=== PATIENT | female | born 2000 | race Native Hawaiian/Other Pacific Islander ===

== ENCOUNTER 2020-01-16 21:53 | Observation (INO) | payer MEDICAID, OTHER ==
[2020-01-16] MEDS ORDERED: DEXAMETHASONE INJ 10 MG/ML VIAL IV ONE (22:30)
[2020-01-16] MEDS ORDERED: IPRATROPIUM/ALBUTEROL 3 ML VIAL NEB ONE (22:31)
[2020-01-16] MEDS ORDERED: ALBUTEROL SULFATE 2.5 MG/3 ML VIAL NEB ONE (22:31)
--- NOTE | 2020-01-16 22:47 | RAD ---
EXAM DESCRIPTION: Chest,1 View CLINICAL HISTORY: 19 years Female, SOB COMPARISON: None TECHNIQUE: Single AP chest radiograph. FINDINGS: Clear lungs. No pneumothorax or pleural effusion. Normal cardiomediastinal contour. Normal osseous structures. IMPRESSION: 1. No acute cardiopulmonary process. Electronically signed by: Yasmani Sosa MD 01/16/2020 10:45 PM CDT
--- NOTE | 2020-01-16 22:50 | ED.PDOC ---
History of Present Illness - General Chief Complaint: Respiratory Problem Stated Complaint: SOB Time Seen by Provider: 01/16/20 22:45 Source: patient, RN notes reviewed, Vital Signs reviewed, family - fiance Exam Limitations: no limitations - History of Present Illness Initial Comments: Patient is a 19-year-old female who presents with complaints of shortness of breath and cough. Patient is feeling sick for the last couple of days. Seen at the clinic this morning and was given a breathing treatment and some steroids and told to come to the ED if not improving. Patient became more short of breath this evening and came to the ED. On arrival here patient is 85% on room air. Patient is also dyspneic. Patient complains of cough which is nonproductive. Patient denies fevers or chills. Timing/Duration: 24 hours Severity: moderate Activities at Onset: none Possible Cause: no prior episodes Improving Factors: nothing Worsening Factors: movement Associated Symptoms: chest pain, cough Respiratory Risk Factors: no cause identified Allergies/Adverse Reactions: Allergies NO KNOWN ALLERGY Allergy (Verified 01/16/20 22:17) Home Medications: Ambulatory Orders Albuterol Inhaler [Ventolin Hfa Inhaler] 108 mcg IN QID PRN 01/16/20 Amitriptyline HCl [Amitriptyline Hydrochlori] 50 mg PO DAILY 01/16/20 Fluticasone/Salmeterol 100/50 [Advair Diskus] 1 puff INH BID 01/16/20 Review of Systems - Review of Systems Constitutional: States: see HPI, malaise, weakness. Denies: chills, fever EENTM: States: no symptoms reported. Denies: eye pain, blurred vision, double vision Respiratory: States: see HPI, cough, short of breath Cardiology: States: see HPI, chest pain. Denies: palpitations, syncope Gastrointestinal/Abdominal: States: no symptoms reported. Denies: abdominal pain, nausea, vomiting Genitourinary: States: no symptoms reported. Denies: dysuria Musculoskeletal: States: no symptoms reported. Denies: back pain, neck pain Skin: States: no symptoms reported. Denies: change in color, rash Neurological: States: no symptoms reported. Denies: headache, numbness, tingling, tremors, weakness Endocrine: States: no symptoms reported. Denies: increased hunger, increased thirst, increased urine Hematologic/Lymphatic: States: no symptoms reported All other Systems: Reviewed and Negative Past Medical History (General) - Patient Medical History Hx Seizures: Yes - non medicated. Hx Stroke: No Hx Dementia: No Hx Asthma: Yes Hx of COPD: No Hx Cardiac Disorders: No Hx Congestive Heart Failure: No Hx Pacemaker: No Hx Hypertension: No Hx Thyroid Disease: No Hx Diabetes: No Hx Gastroesophageal Reflux: No Hx Renal Disease: No Hx Cancer: No Hx of HIV: No Hx Hepatitis C: No Hx MRSA: No Surgical History: no surgical history - Vaccination History Hx Tetanus, Diphtheria Vaccination: No Hx Influenza Vaccination: No Hx Pneumococcal Vaccination: No Immunizations Up to Date: No - Social History Hx Tobacco Use: No Hx Chewing Tobacco Use: No Hx Alcohol Use: Yes Hx Substance Use: No Hx Substance Use Treatment: No Hx Depression: No Feels Threatened In Home Enviroment: No Feels Threatened In a Relationship: No Hx Physical Abuse: No Hx Emotional Abuse: No Hx Suspected Abuse: No - Female History Patient is a Female of Child Bearing Age (10 -59 yrs old): No Patient : No - Triage Comment ED Triage Comment: The patient was alert and oriented times 4 and complained of shortness of breath. She did have obvious shortness of breath but was not in distress. She did have a noted O2 sat of 85 on multiple fingers of both hands. She denied nausea and vomiting at the time of assessment. Family Medical History - Family History Mother Sister Family History: Unknown Physical Exam - Physical Exam General Appearance: Alert, Anxious, Obvious distress, Restless, Well Developed, Well Groomed, Well Hydrated, Well Nourished Eyes, Ears, Nose, Throat Exam: PERRL/EOMI, normal ENT inspection, pharynx normal Neck: non-tender, full range of motion, supple, normal inspection Respiratory: lungs clear, normal breath sounds, no respiratory distress, no accessory muscle use, other - +TTP on anterior chest wall. Cardiovascular/Chest: normal peripheral pulses, no edema, no gallop, no JVD, no murmur, tachycardia Peripheral Pulses: radial,right: 2+, radial,left: 2+ Gastrointestinal/Abdominal: normal bowel sounds, non tender, soft, no organomegaly Extremity: normal range of motion, non-tender, normal inspection Neurologic: cotton picker II-XII nml as tested, no motor/sensory deficits, alert, normal mood/affect, oriented x 3 Skin Exam: normal color, warm/dry Lymphatic: no adenopathy Progress - Progress Progress: Differential diagnosis: COVID-19, pneumonia, viral URI, viral pneumonitis among others. 01/17/20 00:37 Patient's had some improvement in her respiratory rate but she is still hypoxic on room air at 86%. I was able to get her up to 93% on 4 L nasal cannula. Patient's d-dimer is negative so unlikely PE she does have a history of asthma but does not normally need medications for it. Patient denied any fevers nor productive cough. Plan on admission to the hospital. Of discussed this plan of care with the patient and her fianc and they voiced understanding and agreement. I discussed this with Matthias Hernandez NP, and he accepts the patient for admission. Luis M Bergman M.D. #[id number] - Results/Orders Results/Orders: EXAM DESCRIPTION: Chest,1 View CLINICAL HISTORY: 19 years Female, SOB COMPARISON: None TECHNIQUE: Single AP chest radiograph. FINDINGS: Clear lungs. No pneumothorax or pleural effusion. Normal cardiomediastinal contour. Normal osseous structures. IMPRESSION: 1. No acute cardiopulmonary process. Electronically signed by: Yasmani Sosa MD 01/16/2020 10:45 PM Laboratory Results - last 24 hr 01/16/20 01/16/20 01/16/20 22:19 22:19 22:19 WBC 12.5 H RBC 4.82 Hgb 14.2 Hct 41.4 MCV 85.8 MCH 29.5 MCHC 34.4 RDW 13.8 Plt Count 223 MPV 8.7 Absolute Neuts (auto) 12.00 H Absolute Lymphs (auto) 0.40 L Absolute Monos (auto) 0.10 L Absolute Eos (auto) 0.00 Absolute Basos (auto) 0.00 Neutrophils % 95.7 H Lymphocytes % 3.4 L Monocytes % 0.4 L Eosinophils % 0.3 L Basophils % 0.2 PT INR PTT (SP) Fibrinogen D-Dimer, Quantitative Sodium 137 Potassium 4.0 Chloride 105 Carbon Dioxide 23 Anion Gap 13.0 BUN 13 Creatinine 0.62 BUN/Creatinine Ratio 21.0 H Random Glucose 177 H Serum Osmolality 278.3 Calcium 9.3 Magnesium Ferritin Total Bilirubin 0.5 AST 19 ALT 20 Alkaline Phosphatase 96 LD Total Creatine Kinase 112 CK-MB (CK-2) 2.0 CK-MB (CK-2) % Not Reportable Troponin I < 0.02 C-Reactive Protein B-Natriuretic Peptide < 15.0 Serum Total Protein 8.5 H Albumin 4.6 Globulin 3.9 H Albumin/Globulin Ratio 1.2 01/16/20 01/16/20 01/16/20 22:19 22:19 22:19 WBC RBC Hgb Hct MCV MCH MCHC RDW Plt Count MPV Absolute Neuts (auto) Absolute Lymphs (auto) Absolute Monos (auto) Absolute Eos (auto) Absolute Basos (auto) Neutrophils % Lymphocytes % Monocytes % Eosinophils % Basophils % PT 10.3 INR 1.04 PTT (SP) 26.0 Fibrinogen 359 D-Dimer, Quantitative < 131.0 L Sodium Potassium Chloride Carbon Dioxide Anion Gap BUN Creatinine BUN/Creatinine Ratio Random Glucose Serum Osmolality Calcium Magnesium Ferritin 15.3 Total Bilirubin AST ALT Alkaline Phosphatase LD Total 157 Creatine Kinase CK-MB (CK-2) CK-MB (CK-2) % Troponin I C-Reactive Protein B-Natriuretic Peptide Serum Total Protein Albumin Globulin Albumin/Globulin Ratio 01/16/20 22:19 WBC RBC Hgb Hct MCV MCH MCHC RDW Plt Count MPV Absolute Neuts (auto) Absolute Lymphs (auto) Absolute Monos (auto) Absolute Eos (auto) Absolute Basos (auto) Neutrophils % Lymphocytes % Monocytes % Eosinophils % Basophils % PT INR PTT (SP) Fibrinogen D-Dimer, Quantitative Sodium Potassium Chloride Carbon Dioxide Anion Gap BUN Creatinine BUN/Creatinine Ratio Random Glucose Serum Osmolality Calcium Magnesium 1.7 L Ferritin Total Bilirubin AST ALT Alkaline Phosphatase LD Total Creatine Kinase CK-MB (CK-2) CK-MB (CK-2) % Troponin I C-Reactive Protein 0.7 B-Natriuretic Peptide Serum Total Protein Albumin Globulin Albumin/Globulin Ratio COVID negative Human rhinovirus positive Vital Signs 01/16/20 01/16/20 01/17/20 22:05 23:00 00:00 Temperature 96.9 F L Pulse Rate [ 106 H 114 H 115 H Pulse Ox] Respiratory 20 20 16 Rate Blood Pressure 138/92 122/76 121/75 [Left Arm] O2 Sat by Pulse 85 L 86 L 92 L Oximetry Departure - Departure Clinical Impression: Hypoxemia Acute asthma exacerbation Qualifiers: Asthma severity: severe Asthma persistence: persistent Qualified Code(s): J45.51 - Severe persistent asthma with (acute) exacerbation Time of Disposition: 00:59 Disposition: Admit Patient Condition: Fair Departure Forms: ED Discharge - Pt. Copy, Patient Portal Self Enrollment Diet: resume usual diet Activity: increase activity as tolerated Referrals: rIma Mai NP [Primary Care Provider] - 1-2 Weeks Home Medications: Ambulatory Orders Albuterol Inhaler [Ventolin Hfa Inhaler] 108 mcg IN QID PRN 01/16/20 Amitriptyline HCl [Amitriptyline Hydrochlori] 50 mg PO DAILY 01/16/20 Fluticasone/Salmeterol 100/50 [Advair Diskus] 1 puff INH BID 01/16/20 Critical Care Note - Critical Care Note Total Time (mins): 45 Decision To Admit - Decistion To Admit Decision to Admit Date: 01/17/20 Decision to Admit Time: 01:03
--- NOTE | 2020-01-17 01:34 | HP ---
SUPERVISING PHYSICIAN: Prem Glover MD CHIEF COMPLAINT: Increasing shortness of breath. HISTORY OF PRESENT ILLNESS: Ms. Thomas is a 19 year-old female patient with a past medical history of asthma that is poorly controlled. She presented to the Emergency Room last night complaining of shortness of breath and cough. She notes she had been sick for several days, she was seen in the clinic in [place] and given steroids and told to come to the Emergency Room if she was no improving. The patient became much more short of breath later in the afternoon after visiting the Emergency Department and on arrival she was actually showing 85% on room air. The patient was also noted to be dyspneic and complaining of a cough which was nonproductive. Her respiratory panel was positive for a rhino enterovirus but negative for Covid-19 and flu. Her vital signs at time of admission did show oxygen saturation 95% on room air with a heart rate of 118, blood pressure 138/92, respirations 26. She was given multiple breathing treatments and had some slight improvement and showing to be stable. Additional laboratory showed she had a white count of 12,500 with a left shift. D-dimer was negative and chemistries showed normal electrolytes with a normal liver function, troponin less than 0.02. She was given Decadron and Dr. Bergman requested patient be admitted for ongoing treatment of asthma exacerbation having failed outpatient treatment measures. She was placed in observation in stable condition. PAST MEDICAL HISTORY: 1. Asthma, poorly controlled. 2. Seizure disorder with last seizure reported in November. 3. Chronic migraines. PAST SURGICAL HISTORY: No surgical history listed. CURRENT MEDICATIONS: 1. Advair 1 inhaled b.i.d. 2. Albuterol inhaler 108 mcg q.i.d. ALLERGIES: No known drug allergies. FAMILY HISTORY: SOCIAL HISTORY: REVIEW OF SYSTEMS: PHYSICAL EXAMINATION: VITAL SIGNS: Initially on presentation to the medical/surgical floor she was afebrile, temperature 97, pulse 108, blood pressure 120/76, respirations 20, oxygen saturation 92% on 4 liter nasal cannula. GENERAL: The patient looks to be tired. She is resting comfortably, does not appear to be in any acute distress at time of admission to the medical/surgical floor. She does look tired. HEENT: Tympanic membranes clear bilaterally. Oropharynx pink, moist without lesions. NECK: Supple, non-tender, full range of motion. No jugular venous distention. CHEST: Lung sounds remain diminished throughout with some mild inspiratory expiratory wheezing bilaterally. CARDIOVASCULAR: Regular rate and rhythm. ABDOMEN: Soft, non-tender, positive bowel sounds. EXTREMITIES: Without edema. NEUROLOGIC: She is alert and oriented x3. Cranial nerves II through XII are grossly intact. Facial features are symmetrical. Extraocular movements within normal limits, no nystagmus. SKIN: Warm, pink and dry. LABORATORY: White count admission was 12,500 with left shift. Coagulation studies showed normal PT/PTT, D-dimer less than 131. Chemistries initially on admission showed normal electrolytes with creatinine of 0.62, liver functions all within normal limits. BNP less than 15. Troponin normal at 0.02. Magnesium a little low at 1.7. Urinalysis was pending. MICROBIOLOGY: Respiratory panel was negative for all viral and bacterial targets assessed except for human rhino virus, enterovirus. RADIOLOGY: Chest x-ray in Emergency Room per radiology interpretation showed no acute cardiopulmonary process. ASSESSMENT: 1. Acute exacerbation of asthma with concerns for developing community acquired pneumonia. 4. Four weeks . 5. History of seizure disorder, last seizure being in November. 6. Chronic headache disorder in the form of migraine. PLAN: The patient is going to be placed in observation for exacerbation of her asthma. She will be given breathing treatments initially with Duoneb, as she transitions and requires less supplemental oxygen we will decrease her breathing treatments to albuterol. She is on antibiotics to cover her questionable underlying pneumonia in the form of Rocephin and azithromycin. I started her on steroids with Solu-Medrol on a q12 schedule at 60 mg. She is on DVT prophylaxis with patient on Lovenox per protocol as well as GI protection with Protonix. Titrate her 02 off and aggressive pulmonary hygiene, anticipate to hopefully be able to discharge in the 24 to 48 hours. Until then, we will continue to monitor and treat as needed. #[id number] [facility]
[2020-01-17] MEDS ORDERED: MAGNESIUM SULFATE PREMIX 2GM 2 GM in PREMIX BAG 1 BAG IVPB ONE (02:14)
[2020-01-17] MEDS ORDERED: ACETAMINOPHEN 325 MG TAB PO PRN (02:16)
[2020-01-17] MEDS ORDERED: ALBUTEROL SULFATE 2.5 MG/3 ML VIAL NEB PRN (02:16)
[2020-01-17] MEDS ORDERED: SODIUM CHLORIDE 0.9% (FLUSH) 10 ML SYG IV PRN (02:16)
[2020-01-17] MEDS ORDERED: AZITHROMYCIN IV 500 MG in SODIUM CHLORIDE 0.9% 250ML 250 ML IVPB ONE (02:23)
[2020-01-17] MEDS ORDERED: cefTRIAXone SODIUM 1 GM in SODIUM CHL 0.9% 50ML MIN-BAG+ 50 ML IVPB SCH (02:30)
[2020-01-17] MEDS ORDERED: IV SET AND CAP CHANGE INJ INJ SCH (02:30)
[2020-01-17] MEDS ORDERED: SODIUM CHLORIDE 0.9% 250ML 250 ML ONE (02:34)
[2020-01-17] MEDS ORDERED: MAGNESIUM SULFATE PREMIX 2GM 50 ML IVPB ONE (02:34)
[2020-01-17] MEDS ORDERED: AZITHROMYCIN IV 500 MG VIAL IVPB ONE (02:34)
[2020-01-17] MEDS ORDERED: cefTRIAXone SODIUM 1 GM VIAL ONE (02:34)
[2020-01-17] MEDS ORDERED: SODIUM CHL 0.9% 50ML MIN-BAG+ 50 ML IVPB ONE (02:34)
[2020-01-17] MEDS: methylPREDNISolone SODIUM SUC 125 MG/2 ML VIAL IV SCH ×2 (02:58→14:29)
[2020-01-17] MEDS: IPRATROPIUM/ALBUTEROL 3 ML VIAL INH SCH ×3 (05:15→12:50)
[2020-01-17] MEDS: PANTOPRAZOLE SODIUM IV 40 MG VIAL IV SCH (06:23)
[2020-01-17] MEDS: BIFIDOBACTERIUM INFANTIS 4 MG CAP PO SCH (09:00)
[2020-01-17] MEDS: AMITRIPTYLINE HCL 25 MG TAB PO SCH (09:00)
--- NOTE | 2020-01-17 09:11 | RAD ---
EXAM: Chest,2 Views CLINICAL HISTORY: acute asthma exacerbation COMPARISON STUDY: Chest x-ray from January 16, 2020. TECHNICAL: PA and lateral chest x-ray FINDINGS: There is a new pulmonary parenchymal density projecting within the right lower lobe. This could be an acute infectious infiltrate or component of atelectasis given the history of asthma. No edema or effusion. No pneumothorax. The heart is not enlarged. The bones are negative. IMPRESSION: New right lower lobe infiltrate/pneumonia and/or atelectasis. Electronically signed by: Сергей Le MD 01/17/2020 9:09 AM CDT
--- NOTE | 2020-01-17 15:02 | CT ---
EXAM DESCRIPTION: Head CLINICAL HISTORY: chronic migraines with Family HX of brain tumors COMPARISON: None available TECHNIQUE: Multiple axial images of the head without contrast. Multiplanar reformatted images. This exam was performed according to our departmental dose-optimization program, which includes automated exposure control, adjustment of the mA and/or kV according to patient size and/or use of iterative reconstruction technique. FINDINGS: There is no CT evidence of intracranial hemorrhage, mass effect, or large territory infarction. The brain parenchyma and ventricles are normal. There are no abnormal extra-axial fluid collections. Vascular structures are unremarkable. There is no acute calvarial defect. The visualized paranasal sinuses and the mastoids are clear. IMPRESSION: 1. No CT evidence of an acute intracranial abnormality. Recommend follow-up MRI if symptoms persist. Electronically signed by: Evaristo Damon MD 01/17/2020 2:59 PM CDT [facility]
[2020-01-17] MEDS: ALBUTEROL SULFATE 2.5 MG/3 ML VIAL NEB SCH ×2 (16:42→21:45)
[2020-01-17] MEDS ORDERED: ENOXAPARIN SODIUM 40 MG/0.4 ML SYG SUBCU ONE (19:20)
[2020-01-17] MEDS ORDERED: ENOXAPARIN SODIUM 40 MG/0.4 ML SYG SUBCU SCH (21:00)
[2020-01-18] MEDS: methylPREDNISolone SODIUM SUC 125 MG/2 ML VIAL IV SCH (02:46)
[2020-01-18 04:20] VITALS: O2SAT 97
[2020-01-18] MEDS: PANTOPRAZOLE SODIUM IV 40 MG VIAL IV SCH (06:05)
--- NOTE | 2020-01-18 07:32 | RAD ---
EXAM: XR Chest, 2 Views CLINICAL HISTORY: acute exacerbation asthma TECHNIQUE: Frontal and lateral views of the chest. COMPARISON: 01/17/2020 FINDINGS: Lungs: There is improved mild right basilar atelectasis. No consolidation. Pleural space: No abnormality noted. No pneumothorax. Heart: No abnormality noted. No cardiomegaly. Mediastinum: No abnormality noted. Bones/joints: No abnormality noted. IMPRESSION: There is improved mild right basilar atelectasis. No consolidation. Electronically signed by: Yvette Carranza MD 01/18/2020 7:30 AM CDT
[2020-01-18] MEDS: ALBUTEROL SULFATE 2.5 MG/3 ML VIAL NEB SCH ×2 (08:08→12:30)
[2020-01-18] MEDS ORDERED: AZITHROMYCIN 250 MG TAB PO SCH (09:00)
[2020-01-18] MEDS ORDERED: cefTRIAXone SODIUM 1 GM in SODIUM CHL 0.9% 50ML MIN-BAG+ 50 ML IVPB SCH (09:00)
[2020-01-18] MEDS: AMITRIPTYLINE HCL 25 MG TAB PO SCH (09:16)
[2020-01-18] MEDS: BIFIDOBACTERIUM INFANTIS 4 MG CAP PO SCH (09:17)
[2020-01-18 16:53] VITALS: BP 116/68; TEMP 98.4
--- NOTE | 2020-01-19 14:21 | DS ---
SUPERVISING PHYSICIAN: Ella Glover MD ADMISSION DIAGNOSIS: 1. Acute exacerbation of asthma with concerns for developing community acquired pneumonia. 2. Four weeks . 3. History of seizure disorder, last seizure being in November. 4. Chronic headache disorder in the form of migraine. DISCHARGE DIAGNOSIS: 1. Acute exacerbation of asthma secondary to upper respiratory infection with rhinovirus with underlying community acquired pneumonia. 2. History of asthma, poorly controlled. 3. Hyperglycemia with no formal diagnosis of diabetes mellitus, needing further workup as an outpatient with hemoglobin A1c. 4. Hypothyroidism, not previously diagnosed, primary versus secondary, needing further workup as an outpatient. 5. Four weeks . 6. History of seizure disorder, last seizure being reported in November and no seizure activity during hospitalization. 7. Chronic headache disorder in the form of migraines, needing further workup as an outpatient. REASON FOR HOSPITALIZATION: Ms. Thomas is a 19 year-old female patient with a past medical history of asthma that is poorly controlled. She presented to the Emergency Room last night complaining of shortness of breath and cough. She notes she had been sick for several days, she was seen in the clinic in [place] and given steroids and told to come to the Emergency Room if she was no improving. The patient became much more short of breath later in the afternoon after visiting the Emergency Department and on arrival she was actually showing 85% on room air. The patient was also noted to be dyspneic and complaining of a cough which was nonproductive. Her respiratory panel was positive for a rhino enterovirus but negative for COVID-19 and flu. Her vital signs at time of admission did show oxygen saturation 95% on room air with a heart rate of 118, blood pressure 138/92, respirations 26. She was given multiple breathing treatments and had some slight improvement and showing to be stable. Additional laboratory showed she had a white count of 12,500 with a left shift. D-dimer was negative and chemistries showed normal electrolytes with a normal liver function, troponin less than 0.02. She was given Decadron and Dr. Bergman requested patient be admitted for ongoing treatment of asthma exacerbation having failed outpatient treatment measures. She was placed in observation in stable condition. LABORATORY: White count on discharge was 9,600, hemoglobin 13.8, hematocrit 40.4, platelet count 227,000, differential did show a left shift. Coagulation studies showed normal PT, PTT and D-dimer. Chemistries on discharge show normal electrolytes. Blood sugar was elevated at 246. Magnesium 2.3. Liver functions within normal limits. TSH low at 0.3. Free T4 index was 0.125, T4 normal at 6.27, T3 uptake normal at 40.5. Urinalysis showed 500 glucose, 15 ketones, otherwise within normal limits. MICROBIOLOGY: Respiratory panel was negative for COVID and influenza, but positive for human rhinovirus/enterovirus. RADIOLOGY: Final chest x-ray showed improved right basilar atelectasis with no consolidation. Initial chest x-ray on admission did show right lower lobe infiltrate versus pneumonia versus atelectasis. CT of the head showed no CT evidence of acute intracranial abnormality, recommended followup MRI if symptoms persist. HOSPITAL COURSE: Mr. Thomas was placed in observation from the Emergency Room for exacerbation of her asthma. She was started on DuoNeb treatments and was showing requirement for oxygen. With nasal cannula, she was saturating in the low 90s. She was started on steroids as well as antibiotics with Rocephin and azithromycin and with persistent good bronchial hygiene and DuoNeb treatments, we were able to titrate to albuterol treatments. She was showing clinical improvement and was actually showing saturations prior to discharge at 97% on room air. Blood pressure was stable with final blood pressure 116/68. She remained afebrile. Her headache had improved with Tylenol. Clinically, she was showing good improvement and response to treatment and it was felt she could continue with outpatient management. PLAN: Ms. Thomas was discharged to followup with her primary care physician, Irma Mai on 01/23/20 at 14:40. She was encouraged to avoid her known asthma triggers. She will need followup in regards to the findings for hypothyroidism that was previously undiagnosed as well as she needs asthma action plan in place. Her asthma has been out of control and she more than likely needs to be on long-term maintenance. In regards to her hyperglycemia, it may have been related to the treatment with Solu-Medrol, but will need further workup as she did have some glucose in her urine as well as ketones and will need hemoglobin A1c as an outpatient. She was continued on antibiotics with azithromycin as well as a Medrol Dosepak and given albuterol inhaler and refill on her nebulizer and to continue with previous medications as prior to hospitalization. She is encouraged to increase her activity as tolerated. Diet was regular diet as tolerated. She was given instructions to return to the Emergency Room should she have any concerning symptoms and to followup as instructed. DISPOSITION: The patient was discharged home to followup with Irma Mai. CONDITION ON DISCHARGE: Stable and improved. MEDICATIONS AT TIME OF DISCHARGE: 1. Azithromycin 250 mg for a total of 4 days. 2. Medrol Dosepak 4 mg as directed. 3. Albuterol inhaler 108 mcg q.i.d. as needed p.r.n. for shortness of breath. 4. Advair Diskus 100/50 1 puff inhaled b.i.d. 5. Albuterol nebulizers 2.5 mg inhaled q.4h. as needed. #[id number] cc: DEDRA Mascorro
== END 2020-01-18 12:45 | disposition home or self-care (01) ==
LOC: ER 21:53 → MS 01-17 01:33
PROVIDERS: ADMIT Nurse Practitioner Family; ATTEND Nurse Practitioner Family
DX: J45.51 Severe persistent asthma with (acute) exacerbation (principal); B34.8 Other viral infections of unspecified site; O98.53 Other viral diseases complicating the puerperium; J06.9 Acute upper respiratory infection, unspecified; O99.53 Diseases of the respiratory system complicating the puerperium; J18.9 Pneumonia, unspecified organism; R73.9 Hyperglycemia, unspecified; R09.02 Hypoxemia; O99.285 Endocrine, nutritional and metabolic diseases complicating the puerperium; E03.9 Hypothyroidism, unspecified; O99.355 Diseases of the nervous system complicating the puerperium; G40.909 Epilepsy, unspecified, not intractable, without status epilepticus; G43.909 Migraine, unspecified, not intractable, without status migrainosus; Z79.51 Long term (current) use of inhaled steroids; Z79.899 Other long term (current) drug therapy
CPT/HCPCS: 96366; 96367; 96365; 96368; 96375 ×2; 96376 ×2; 96372; J7611 ×5; Q0144; J0696; J2060; J2930 ×3; J7050 ×2; J1650; J1100; J0456; A4216; J7620 ×2; J3475; 85379; 80048; 82553; 80053; 36415 ×3; 85384; 81001; 86140; 85025 ×2; 82550; 82728; 84703; 83615; 83735 ×2; 85730; 85610; 84479; 84443; 84436; 84484; 83880; 71045; 71046 ×2; 70450; 94640 ×5; 94760 ×3; 94762; 99285; G0378; 87635